=== PATIENT | female | born 2000 | race Caucasian/White ===

== ENCOUNTER 2021-09-15 19:56 | Emergency (ER) | payer OTHER ==
[~2021-09-15] VITALS: Ht 170.2 cm; Wt 77.1 kg
[2021-09-15 21:52] VITALS: BP 133/89
== END 2021-09-15 23:31 | disposition home or self-care (01) ==
LOC: ER 19:59
DX: S13.4XXA Sprain of ligaments of cervical spine, initial encounter (principal); R22.0 Localized swelling, mass and lump, head; W22.8XXA Striking against or struck by other objects, initial encounter; Y93.89 Activity, other specified; Y92.89 Other specified places as the place of occurrence of the external cause; Y99.8 Other external cause status
CPT/HCPCS: 70260; 72040